=== PATIENT | male | born 1990 | race Caucasian/White ===

== ENCOUNTER 2017-03-12 11:08 | Emergency (ER) | payer OTHER ==
[2017-03-12 11:10] VITALS: BP 131/73; PULSE 70; RESP 16; TEMP 99.1; O2SAT 98
[2017-03-12] MEDS ORDERED: SODIUM CHLOR 0.9% 1000 ML INJ 1,000 ML IV SCH (11:26)
[2017-03-12] MEDS ORDERED: diphenhydrAMINE HCL 50 MG/ML VIAL IV PUSH ONE (11:30)
[2017-03-12] MEDS ORDERED: PROCHLORPERAZINE INJ 10 MG/2 ML VIAL IV PUSH ONE (11:30)
[2017-03-12] MEDS ORDERED: SODIUM CHLORIDE 0.9% FLUSH 10 ML FLUSH IV FLUSH PRN (11:30)
[2017-03-12 11:46] VITALS: O2SAT 100
[2017-03-12 11:55] LABS: AUTOMATED NEUTROPHIL # 2.6 TH/MM3 (1.8-7.7); EOSINOPHIL # 0.1 TH/MM3 (0-0.4); EOSINOPHIL % 1.2 % (0.0-4.0); HEMATOCRIT 44.4 % (39.0-51.0); HEMO FLAGS DIFF FINAL; LYMPH % 32.6 % (9.0-44.0); LYMPHOCYTE # 1.4 TH/MM3 (1.0-4.8); MEAN CELL VOLUME 88.8 FL (80.0-100.0); MEAN CORPUSCULAR HEMOGLOBIN 30.1 PG (27.0-34.0); MEAN CORPUSCULAR HGB CONC 33.9 % (32.0-36.0); MONO % 7.1 % (0.0-8.0); NEUT % 58.1 % (16.0-70.0); PLATELET COUNT 238 TH/MM3 (150-450); RED BLOOD COUNT 4.99 MIL/MM3 (4.50-5.90); RED CELL DISTRIBUTION WIDTH 12.4 % (11.6-17.2); WHITE BLOOD COUNT 4.4 TH/MM3 (4.0-11.0)
[2017-03-12] MEDS ORDERED: BACL10TA PO (11:57)
[2017-03-12] MEDS ORDERED: NEXI40CA PO (11:57)
[2017-03-12] MEDS ORDERED: BENADRYL PO (11:57)
[2017-03-12] MEDS ORDERED: TRAZ50TA12 PO (11:57)
[2017-03-12] MEDS ORDERED: PEPT262S PO (11:57)
[2017-03-12] MEDS ORDERED: IOHEXOL 350 MG/ML 10 ML VIAL (for RAD DIAG) IVCONTRAST ONE (12:11)
[2017-03-12 12:13] LABS: ALT (GPT) 25 U/L (12-78); ANION GAP 4 MEQ/L (5-15); AST (GOT) 9 U/L (15-37); BICARBONATE 30.7 MEQ/L (21.0-32.0); BLOOD UREA NITROGEN 7 MG/DL (7-18); CHLORIDE 105 MEQ/L (98-107); GLOMERULAR FILTRATION RATE 97 ML/MIN (>89); POTASSIUM 3.7 MEQ/L (3.5-5.1); SODIUM (NA) 140 MEQ/L (136-145)
[2017-03-12 12:15] LABS: ALKALINE PHOSPHATASE 76 U/L (45-117); TOTAL BILIRUBIN ADULT 0.4 MG/DL (0.2-1.0)
--- NOTE | 2017-03-12 12:29 | RADRPT ---
EXAM DATE/TIME: 03/12/2017 11:53 [place] COMPARISON: No previous studies available for comparison. INDICATIONS : Abdominal pain with vomiting IV CONTRAST: 71 cc Omnipaque 350 (iohexol) IV ORAL CONTRAST: No oral contrast ingested. RADIATION DOSE: 6.90 CTDIvol (mGy) MEDICAL HISTORY : None SURGICAL HISTORY : Shunt ENCOUNTER: Initial ACUITY: 1 day PAIN SCALE: 4/10 LOCATION: Bilateral abdomen TECHNIQUE: Volumetric scanning of the abdomen and pelvis was performed. Using automated exposure control and ad justment of the mA and/or kV according to patient size, radiation dose was kept as low as reasonably achievable to obtain optimal diagnostic quality images. DICOM format image data is available electro nically for review and comparison. FINDINGS: LOWER LUNGS: The visualized lower lungs are clear. LIVER: Homogeneous density without lesion. There is no dilation of the biliary tree. No calcified gallston es. SPLEEN: Normal size without lesion. PANCREAS: Within normal limits. KIDNEYS: Normal in size and shape. There is no mass, stone or hydronephrosis. ADRENAL GLANDS: Within normal limits. VASCULAR: There is no aortic aneurysm. BOWEL/MESENTERY: Uncomplicated colonic diverticulosis is noted. No acute diverticulitis is noted. No bowel obstruction is noted. Some ascites is noted within the pelvis. Probable V.-P. shunt is noted with its distal tip coiled in the right lower quadrant. There is no evidence of acute appendicitis. ABDOMINAL WALL: Within normal limits. RETROPERITONEUM: There is no lymphadenopathy. BLADDER: No wall thickening or mass. REPRODUCTIVE: Within normal limits. INGUINAL: There is no lymphadenopathy or hernia. MUSCULOSKELETAL: Degenerative changes and scoliosis of the thoracolumbar spine are noted. CONCLUSION: 1. No CT evidence of acute appendicitis. 2. Uncomplicated colonic diverticulosis. 3. Some ascites within the pelvis. 4. Degenerative changes and scoliosis of the thoracolumbar spine. Carlos Alberto Medeiros MD on March 12, 2017 at 12:22 Board Certified Radiologist. This report was verified electronically.
[2017-03-12] MEDS ORDERED: ZOFR4TAB3 SL (12:33)
--- NOTE | 2017-03-12 12:34 | PD ---
HPI Chief Complaint: GI Complaint Time Seen by Provider: 11:21 Travel History International Travel<30 days: No Contact w/Intl Traveler<30days: No Traveled to known affect area: No History of Present Illness HPI 26 yo M c/o abdominal pain, nausea and vomiting today. It started early in the morning. He believes it might be related to be stated that tasted somewhat spoiled to him he's had no fever. He describes his stomach pain as if it's turning and in a knot. He does have a history of ventriculoperitoneal shunt. He has a right headache towards the front which is typical for him in severity and quality. PFSH Past Medical History Medical other: Yes (COGNITIVE DISORDER NOS ) Neurologic: Yes (LEFT SIDE PARALYSIS, SPASTIC GAIT, FOOT DROP ) Psychiatric: Yes (PSYCHOLOGICAL- SOCIAL DIFFICULTIES ) Past Surgical History Neurologic Surgery: Yes (SHUNT) Social History Alcohol Use: No Tobacco Use: No Substance Use: No Allergies-Medications (Allergen,Severity, Reaction): Coded Allergies: No Known Allergies (Unverified , 03/12/17) Reported Meds & Prescriptions Reported Meds & Active Scripts Active Reported [Benadryl ] 25 Mg PO Q4HR Nexium (Esomeprazole DR) 40 Mg Capdr 40 Mg PO HS Trazodone (Trazodone HCl) 50 Mg Tab 50 Mg PO HS Baclofen 10 Mg Tab 10 Mg PO HS Review of Systems Except as stated in HPI: all other systems reviewed are Neg General / Constitutional: No: Fever Physical Exam Narrative GENERAL: 26-year-old male well-nourished well-developed SKIN: Focused skin assessment warm/dry. HEAD: Atraumatic. Normocephalic. EYES: Pupils equal and round. No scleral icterus. No injection or drainage. ENT: No nasal bleeding or discharge. Mucous membranes pink and moist. NECK: Trachea midline. No JVD. CARDIOVASCULAR: Regular rate and rhythm. No murmur appreciated. RESPIRATORY: No accessory muscle use. Clear to auscultation. Breath sounds equal bilaterally. GASTROINTESTINAL: Periumbilical tenderness is present. Soft. MUSCULOSKELETAL: No obvious deformities. No clubbing. No cyanosis. No edema. NEUROLOGICAL: Awake and alert. No obvious cranial nerve deficits. Motor grossly within normal limits. Normal speech. PSYCHIATRIC: Appropriate mood and affect; insight and judgment normal. Data Data Last Documented VS Vital Signs Date Time Temp Pulse Resp B/P (MAP) Pulse Ox O2 Delivery O2 Flow Rate FiO2 03/12/17 11:46 100 Room Air 03/12/17 11:10 99.1 70 16 Vital signs reviewed Vital Signs Date Time Temp Pulse Resp B/P (MAP) Pulse Ox O2 Delivery O2 Flow Rate FiO2 03/12/17 11:46 100 Room Air 03/12/17 11:10 99.1 70 16 131/73 (92) 98 Orders Orders Complete Blood Count With Diff (03/12/17 11:26) Comprehensive Metabolic Panel (03/12/17 11:26) Lipase (03/12/17 11:26) Ct Abd/Pel W Iv Contrast(Rout) (03/12/17 11:26) Iv Access Insert/Monitor (03/12/17 11:26) Ecg Monitoring (03/12/17 11:26) Oximetry (03/12/17 11:26) Sodium Chlor 0.9% 1000 Ml Inj (Ns 1000 M (03/12/17 11:26) Sodium Chloride 0.9% Flush (Ns Flush) (03/12/17 11:30) Diphenhydramine Inj (Benadryl Inj) (03/12/17 11:30) Prochlorperazine Inj (Compazine Inj) (03/12/17 11:30) Iohexol 350 Inj (Omnipaque 350 Inj) (03/12/17 12:11) Labs Laboratory Tests Test 03/12/17 11:40 White Blood Count 4.4 TH/MM3 Red Blood Count 4.99 MIL/MM3 Hemoglobin 15.0 GM/DL Hematocrit 44.4 % Mean Corpuscular Volume 88.8 FL Mean Corpuscular Hemoglobin 30.1 PG Mean Corpuscular Hemoglobin Concent 33.9 % Red Cell Distribution Width 12.4 % Platelet Count 238 TH/MM3 Mean Platelet Volume 7.7 FL Neutrophils (%) (Auto) 58.1 % Lymphocytes (%) (Auto) 32.6 % Monocytes (%) (Auto) 7.1 % Eosinophils (%) (Auto) 1.2 % Basophils (%) (Auto) 1.0 % Neutrophils # (Auto) 2.6 TH/MM3 Lymphocytes # (Auto) 1.4 TH/MM3 Monocytes # (Auto) 0.3 TH/MM3 Eosinophils # (Auto) 0.1 TH/MM3 Basophils # (Auto) 0.0 TH/MM3 CBC Comment DIFF FINAL Differential Comment Blood Urea Nitrogen 7 MG/DL Creatinine 0.95 MG/DL Random Glucose 84 MG/DL Total Protein 7.3 GM/DL Albumin 4.2 GM/DL Calcium Level 8.8 MG/DL Alkaline Phosphatase 76 U/L Aspartate Amino Transf (AST/SGOT) 9 U/L Alanine Aminotransferase (ALT/SGPT) 25 U/L Total Bilirubin 0.4 MG/DL Sodium Level 140 MEQ/L Potassium Level 3.7 MEQ/L Chloride Level 105 MEQ/L Carbon Dioxide Level 30.7 MEQ/L Anion Gap 4 MEQ/L Estimat Glomerular Filtration Rate 97 ML/MIN Lipase 131 U/L MDM Medical Decision Making Medical Screen Exam Complete: Yes Emergency Medical Condition: Yes Medical Record Reviewed: Yes Differential Diagnosis Constipation, Gastritis, Acute Cholecystitis, Biliary Colic, Pancreatitis, BORRERO , Hepatitis, Bowel Obstruction, Cystitis, Mesenteric Ischemia, AAA, Appendicitis , Renal Stone/Hydronephrosis, GERD, perforated viscous Narrative Course CBC & BMP Diagram 03/12/17 11:40 Total Protein 7.3, Albumin 4.2, Calcium Level 8.8, Alkaline Phosphatase 76, Aspartate Amino Transf (AST/SGOT) 9 L, Alanine Aminotransferase (ALT/SGPT) 25, Total Bilirubin 0.4 CT abdomen and pelvis: No acute appendicitis, trace fluid in the abdomen consistent with ventricular peritoneal shunt It is considered less likely as the patient is having shunt related pain/ cephalgia. The patient is resting comfortably and feels better, is alert and in no distress. The patients results and examination findings were discussed. The repeat examination is unremarkable and benign. The history, exam, diagnostic testing, and current condition do not suggest any significant pathology to warrant further testing, continued ED treatment, admission, or surgical evaluation at this point. The vital signs have been stable. The patient does not have uncontrollable pain, intractable vomiting, or other significant symptoms. The patient's condition is stable and appropriate for discharge. The patient will pursue further outpatient evaluation with a primary care physician or other designated or consulting physician as indicated in the discharge instructions. The patient expressed understanding and was agreeable with this plan. Diagnosis Primary Impression: Gastroenteritis Additional Impression: Cephalgia Qualified Codes: R51 - Headache Referrals: Primary Care Physician call for appointment Additional Instructions: You have a choice when it comes to health care, and we are glad that you chose [facility]. Hopefully, we have met your expectations on today's visit. You are welcome to return to [facility] at any time, as we are committed to meeting the health care needs of our community. Med/Other Pt SpecificInfo: Prescription(s) given Scripts Ondansetron Odt (Zofran Odt) 4 Mg Tab 4 MG SL Q8HR Y for Nausea/Vomiting, #10 TAB 0 Refills Prov: Jordin Scott MD 03/12/17 Disposition: 01 DISCHARGE HOME Condition: Stable Jordin Scott MD Mar 12, 2017 12:34
[2017-03-15] MEDS ORDERED: DIPH25CA PO (11:07)
== END 2017-03-12 13:19 | disposition home or self-care (01) ==
LOC: NEPD 11:08
DX: K52.9 Noninfective gastroenteritis and colitis, unspecified (principal); R51 Headache; Z98.2 Presence of cerebrospinal fluid drainage device
CPT/HCPCS: 74177; 80053; 83690; 85025; 96361; 96374; 96375; 99285; J0780; J1200; J7030; Q9967